=== PATIENT | male | born 1995 | race Asian ===

== ENCOUNTER 2016-06-23 02:05 | Emergency (ER) | payer OTHER ==
[2016-06-23] MEDS ORDERED: AZITHROMYCIN 250 MG TABLET PO STA (02:26)
[2016-06-23] MEDS ORDERED: DEXAMETHASONE 10 MG/ML VIAL PO STA (02:26)
[2016-06-23] MEDS ORDERED: DEXAMETHASONE 10 MG/ML VIAL ONE (02:28)
[2016-06-23] MEDS ORDERED: CHERRY SYRUP 10 ML UDC PO ONE (02:28)
[2016-06-23] MEDS ORDERED: AZITHROMYCIN 250 MG TABLET PO ONE (02:28)
== END 2016-06-23 03:19 | disposition home or self-care (01) ==
DX: H66.003 Acute suppurative otitis media without spontaneous rupture of ear drum, bilateral (principal); R09.81 Nasal congestion; F17.200 Nicotine dependence, unspecified, uncomplicated
CPT/HCPCS: 87275; 87276; 99283; A9270

== ENCOUNTER 2016-11-15 17:25 | Emergency (ER) | payer OTHER ==
--- NOTE | 2016-11-15 17:45 | ED Physician Documentation ---
PD HPI URI - Stated complaint Stated Complaint: SORE THROAT/COUGH - Chief complaint Chief Complaint: Heent - History obtained from History obtained from: Patient - History of Present Illness Timing - onset: Other (5 days of illness, started with runny nose and allergy- type symptoms, now more of a productive cough and sore throat and he wonders if he might have strep. No fevers or shortness of breath. No recent travel.) Review of Systems Constitutional: denies: Fever, Chills Ears: denies: Ear pain Nose: reports: Rhinorrhea / runny nose. denies: Congestion Throat: reports: Sore throat Respiratory: reports: Cough. denies: Dyspnea GI: denies: Abdominal Pain PD PAST MEDICAL HISTORY - Past Medical History Cardiovascular: None Respiratory: None Neuro: None Endocrine/Autoimmune: None GI: None : None HEENT: None Psych: None Musculoskeletal: None Derm: None - Past Surgical History Past Surgical History: Yes - Present Medications Home Medications: Ambulatory Orders Medication Instructions Recorded Confirmed Ibuprofen [Motrin] 800 mg PO Q8H PRN #30 tablet 11/15/16 guaiFENesin/CODEINE [Robitussin AC] 5 - 10 ml PO Q6H PRN #120 ml 11/15/16 - Allergies Allergies/Adverse Reactions: Allergies Allergy/AdvReac Type Severity Reaction Status Date / Time No Known Drug Allergies Allergy Verified 11/15/16 17:28 - Social History Does the pt smoke?: Yes Smoking Status: Current every day smoker Does the pt drink ETOH?: Yes Does the pt have substance abuse?: No - Immunizations Immunizations are current?: Yes - POLST Patient has POLST: No PD ED PE NORMAL - Vitals Vital signs reviewed: Yes - General General: Alert and oriented X 3, No acute distress - HEENT HEENT: PERRL, EOMI, Pharynx benign - Neck Neck: Supple, no meningeal sign, No bony TTP - Respiratory Respiratory: No respiratory distress, Clear bilaterally - Abdomen Abdomen: Non tender - Neuro Neuro: Alert and oriented X 3, Normal speech - Psych Psych: Normal mood, Normal affect Results - Vitals Vitals: Vital Signs - 24 hr 11/15/16 17:27 Temperature 36.8 C Heart Rate 86 Respiratory 17 Rate Blood Pressure 135/71 H O2 Saturation 99 Oxygen O2 Source Room air - Labs Labs: Laboratory Tests 11/15/16 17:46 Group A Strep Rapid Negative Departure - Departure Disposition: Home, Self Care Clinical Impression: Viral pharyngitis, Viral URI with cough Condition: Good Record reviewed to determine appropriate education?: Yes Instructions: ED Pharyngitis Viral Prescriptions: Ibuprofen [Motrin] 800 mg PO Q8H PRN #30 tablet PRN Reason: PAIN &/OR FEVER guaiFENesin/CODEINE [Robitussin AC] 5 - 10 ml PO Q6H PRN #120 ml PRN Reason: Cough Comments: Call your doctor to arrange a follow up appointment. Make the next available appointment. In the interim return anytime if worse or if new symptoms develop. Your blood pressure was elevated today on check in to the emergency department. This does not mean that you have hypertension, it is a common phenomenon to check into the emergency department and have elevated blood pressure. I recommend that you see your primary care physician within the week to have it rechecked when you're feeling better. Forms: Activity restrictions
[2016-11-15 18:13] LABS: RAPID STREP SCREEN REAGENT QC YELLOW (YELLOW)
[2016-11-15 18:31] VITALS: BP 131/86
== END 2016-11-15 18:26 | disposition home or self-care (01) ==
LOC: ED 17:25
DX: J06.9 Acute upper respiratory infection, unspecified (principal); B97.89 Other viral agents as the cause of diseases classified elsewhere; F17.200 Nicotine dependence, unspecified, uncomplicated
CPT/HCPCS: 87070; 87430; 99283

== ENCOUNTER 2017-02-01 11:34 | Emergency (ER) | payer OTHER ==
[2017-02-01 11:55] VITALS: BP 117/68
--- NOTE | 2017-02-01 12:33 | ED Physician Documentation ---
History of Present Illness - Stated complaint Stated Complaint: COUGHING - Chief complaint Chief Complaint: General - History obtained from History obtained from: Patient - History of Present Illness Timing: Other (10 days of mild cough, sometimes mildly productive but usually dry, no shortness of breath or fever, he does have sinus congestion and some drainage with some left ear pain that was worse on a recent flight.) Review of Systems Constitutional: denies: Fever, Chills, Myalgias, Fatigue Ears: reports: Ear pain. denies: Loss of hearing Nose: reports: Rhinorrhea / runny nose, Congestion, Sinus pressure / pain Throat: denies: Sore throat Respiratory: reports: Cough. denies: Dyspnea, Hemoptysis, Wheezing GI: denies: Abdominal Pain PD PAST MEDICAL HISTORY - Past Medical History Past Medical History: Yes Cardiovascular: None Respiratory: None Neuro: None Endocrine/Autoimmune: None GI: None : None HEENT: None Psych: None Musculoskeletal: None Derm: None - Past Surgical History Past Surgical History: Yes - Present Medications Home Medications: Ambulatory Orders Medication Instructions Recorded Confirmed Guaifenesin [Mucinex] 1 tab PO BID 02/01/17 02/01/17 Guaifenesin/Pseudoephedrne HCl 1 each PO BID PRN #20 tab.er.12h 02/01/17 [Mucinex D ER 600-60 mg Tablet] Melatonin 5 mg PO DAILY 02/01/17 02/01/17 Mometasone Furoate [Nasonex] 1 spray NS BID #1 spray.pump 02/01/17 - Allergies Allergies/Adverse Reactions: Allergies Allergy/AdvReac Type Severity Reaction Status Date / Time No Known Drug Allergies Allergy Verified 02/01/17 11:54 - Social History Does the pt smoke?: Yes Smoking Status: Current every day smoker Does the pt drink ETOH?: Yes Does the pt have substance abuse?: No - Immunizations Immunizations are current?: Yes - POLST Patient has POLST: No PD ED PE NORMAL - Vitals Vital signs reviewed: Yes - General General: Alert and oriented X 3, No acute distress - HEENT HEENT: PERRL, EOMI, Ears normal, Moist mucous membranes, Pharynx benign - Neck Neck: Supple, no meningeal sign, No bony TTP - Cardiac Cardiac: RRR, No murmur - Respiratory Respiratory: No respiratory distress, Clear bilaterally - Derm Derm: No rash - Neuro Neuro: Alert and oriented X 3, Normal speech Results - Vitals Vitals: Vital Signs - 24 hr 02/01/17 11:52 Temperature 36.6 C Heart Rate 78 Respiratory 16 Rate Blood Pressure 117/68 O2 Saturation 97 Oxygen O2 Source Room air PD MEDICAL DECISION MAKING - ED course ED course: 21-year-old gentleman with symptoms of a viral URI, no evidence of bacterial infection. Conservative care and tobacco cessation were advised. Departure - Departure Disposition: 01 Home, Self Care Clinical Impression: Viral URI with cough Condition: Good Record reviewed to determine appropriate education?: Yes Instructions: ED Upper Resp Infec No Abx Tx, ED Smoking Cessation Prescriptions: Guaifenesin/Pseudoephedrne HCl [Mucinex D ER 600-60 mg Tablet] 1 each PO BID PRN #20 tab.er.12h PRN Reason: congestion Mometasone Furoate [Nasonex] 1 spray NS BID #1 spray.pump Comments: Call your doctor to arrange a follow-up appointment, make the next available appointment. In the interim, return anytime if worse or if new symptoms develop.
== END 2017-02-01 12:41 | disposition home or self-care (01) ==
LOC: ED 11:34
DX: J06.9 Acute upper respiratory infection, unspecified (principal); B34.9 Viral infection, unspecified; F17.200 Nicotine dependence, unspecified, uncomplicated
CPT/HCPCS: 99282; 99283

== ENCOUNTER 2017-04-21 18:14 | Emergency (ER) | payer OTHER ==
--- NOTE | 2017-04-21 22:05 | ED Physician Documentation ---
History of Present Illness - Stated complaint Stated Complaint: COLD SORE - Chief complaint Chief Complaint: General - Additonal information Additional information: hx from pt health 21 y/o m hx cold sores feels another developing L lower lip would like rx for acyclovir no other concerns Review of Systems Constitutional: denies: Fever Throat: reports: Other (cold sore) Respiratory: denies: Cough PD PAST MEDICAL HISTORY - Past Medical History Cardiovascular: None Respiratory: None Neuro: None Endocrine/Autoimmune: None GI: None : None HEENT: None Psych: None Musculoskeletal: None Derm: None - Past Surgical History Past Surgical History: Yes - Present Medications Home Medications: Ambulatory Orders Medication Instructions Recorded Confirmed Acyclovir 200 mg PO 5XD #25 capsule 04/21/17 - Allergies Allergies/Adverse Reactions: Allergies Allergy/AdvReac Type Severity Reaction Status Date / Time No Known Drug Allergies Allergy Verified 04/21/17 18:23 - Social History Does the pt smoke?: Yes Smoking Status: Current every day smoker Does the pt drink ETOH?: Yes Does the pt have substance abuse?: No - Immunizations Immunizations are current?: Yes - POLST Patient has POLST: No PD ED PE NORMAL - Vitals Vital signs reviewed: Yes - HEENT HEENT: Other (no visible blster or sore yet but pt can feel tingling and swelling starting) - Cardiac Cardiac: RRR - Respiratory Respiratory: No respiratory distress, Clear bilaterally Results - Vitals Vitals: Vital Signs - 24 hr 04/21/17 18:20 Temperature 36 C L Heart Rate 78 Respiratory 16 Rate Blood Pressure 119/84 H O2 Saturation 99 Oxygen O2 Source Room air Departure - Departure Disposition: 01 Home, Self Care Clinical Impression: Cold sore Condition: Good Instructions: ED Herpes Simplex Virus Type 1 Follow-Up: CYNTHIA Kulkarni [Provider Group] Prescriptions: Acyclovir 200 mg PO 5XD #25 capsule
[2017-04-21 22:08] VITALS: BP 120/74
== END 2017-04-21 22:07 | disposition home or self-care (01) ==
LOC: ED 18:14
DX: B00.1 Herpesviral vesicular dermatitis (principal); F17.200 Nicotine dependence, unspecified, uncomplicated
CPT/HCPCS: 99283